=== PATIENT | female | born 2000 | race African-American/Black ===

== ENCOUNTER 2020-05-21 17:06 | Emergency (ER) | payer BC, MEDICAID ==
[~2020-05-21] VITALS: Ht 154.9 cm; Wt 59.0 kg
[2020-05-21 17:17] VITALS: Ht 154.9 cm; Wt 59.0 kg
[2020-05-21 17:57] LABS: microscopic required? YES; urine erythrocyte TRACE (NEGATIVE)
[2020-05-21 20:02] VITALS: BP 115/74
== END 2020-05-21 20:02 | disposition home or self-care (01) ==
LOC: ED 17:06
PROVIDERS: Emergency Medicine
DX: G43.909 Migraine, unspecified, not intractable, without status migrainosus (principal)
CPT/HCPCS: J0780; J1200; J1885